=== PATIENT | male | born 1970 | race African-American/Black ===

== ENCOUNTER → 2024-09-07 11:20 | Outpatient (REF) | payer OTHER, SELFPAY ==
[2024-09-07 14:28] LABS: Hepatitis B Surface Antibody Negative
[2024-09-07 19:04] LABS: Rubella Positive
== END ==
LOC: OHS 11:20
PROVIDERS: ATTENDING PHYSICIAN Nurse Practitioner Family
DX: Z23 Encounter for immunization (principal); Z13.9 Encounter for screening, unspecified
CPT/HCPCS: 36415; 71046; 86706; 86735; 86762; 86765; 86787